=== PATIENT | female | born 1955 | race Caucasian/White ===

== ENCOUNTER 2016-09-16 16:08 | Emergency (ER) | payer OTHER ==
[2016-09-16] MEDS ORDERED: DECADRON IM ONE (18:09)
--- NOTE | 2016-09-16 18:10 | PROVIDER DOCUMENTATION ---
HPI-General Adult - General Chief Complaint: Cold Symptoms Stated Complaint: COUGHING, SORE THROAT, EARS STOPPED UP Time Seen by Provider: 09/16/16 17:16 Source: patient Allergies/Adverse Reactions: Patient Allergies Allergy/AdvReac Type Severity Reaction Status Date / Time doxycycline Allergy Severe HIVES Verified 09/16/16 17:16 nitrofurantoin Allergy Severe HIVES Verified 09/16/16 17:16 [From Macrobid] nitrofurantoin Allergy Severe HIVES Verified 09/16/16 17:16 macrocrystalline * [From [facility]] prochlorperazine edisylate * Allergy Severe ANAPHYLAXIS Verified 09/16/16 17:16 [From Compazine] prochlorperazine maleate * Allergy Severe ANAPHYLAXIS Verified 09/16/16 17:16 [From Compazine] Home Medications: Home Medication List Medication Instructions Recorded Confirmed Last Taken Type Atenolol [Tenormin] 50 mg PO DAILY 11/06/12 09/16/16 09/16/16 09:00 History LISINOpril/HCTZ [Prinzide 1 each PO DAILY 11/06/12 09/16/16 09/16/16 09:00 History 20/12.5MG] Meloxicam 15 mg PO DAILY 11/06/12 09/16/16 09/16/16 09:00 History Metformin [Glucophage] 850 mg PO BID CC 11/06/12 09/16/16 09/16/16 09:00 History Aspirin [Aspirin EC] 81 mg PO DAILY 09/16/16 09/16/16 09/16/16 09:00 History Azithromycin [Zithromax Z-Latrell] 250 mg PO DIRECTED #1 pkg 09/16/16 Unknown Rx Guaifenesin/D-Methorphan Hb/PE 1 each PO BID #10 tablet 09/16/16 Unknown Rx [Deconex Dmx Tablet] Montelukast Sodium [Singulair] 10 mg PO DAILY 09/16/16 09/16/16 09/16/16 09:00 History Multivitamin [Multiple Vitamins] 1 each PO DAILY 09/16/16 09/16/16 09/16/16 09: 00 History Omeprazole 40 mg PO DAILY 09/16/16 09/16/16 09/16/16 09:00 History SIMVAstatin [Zocor] 80 mg PO DAILY 09/16/16 09/16/16 09/16/16 09:00 History - History of Present Illness -Gen Adult Nature of Presenting Problems: Pt is a 61 y/o F c chief complaint cough and cold symptoms x 3-5 days. Pt states her cough has become productive. She denies fever. On arrival, pt is in minimal distress and afebrile. she has a h/o HTN, HLD, GERD. Review of Systems - Adult - REVIEW OF SYSTEMS - ADULT Constitutional: reports: no symptoms reported. denies: chills, fatique Eyes: reports: no symptoms reported. denies: blurred vision, double vision Ears, Nose, Mouth & Throat: reports: sinus problem, nose pain. denies: ear pain , throat pain Cardiovascular: reports: no symptoms reported. denies: chest pain, orthopnea Respiratory: reports: cough. denies: wheezing Gastrointestinal: reports: no symptoms reported. denies: abdominal pain, nausea Genitourinary: reports: no symptoms reported. denies: dysuria, hematuria Musculoskeletal: reports: no symptoms reported. denies: bone pain, joint pain, joint swelling Integumentary: reports: no symptoms reported Neurological: reports: no symptoms reported. denies: numbness, paresthesia Psychiatric: reports: no symptoms reported. denies: anxiety, emotional problems Endocrine: reports: no symptoms reported. denies: cold intolerance, heat intolerance Hematologic/Lymphatic: reports: no symptoms reported. denies: blood clots, low blood count Allergic/Immunologic: reports: no symptoms reported. denies: allergic reactions , food allergy All Other Systems: Reviewed and Negative Past History - Adult - PAST MEDICAL HISTORY-ADULT Review of Records: reports: Old Records Reviewed, Nursing Assessment Review, Medications Reviewed, Social history reviewed & non-contributory. Major Childhood Illnesses: reports: denies history Cardiovascular: reports: HTN, hyperlipidemia Respiratory: reports: denies history Gastrointestinal: reports: GERD, other (hitial hernia) Obstetrical/Gynecological: reports: denies history Genitourinary: reports: denies history Musculoskeletal: reports: arthritis Neurological: reports: denies history Endocrine/Immune: reports: Diabetes Other Conditions: reports: denies history - PRIOR SURGERIES/PROCEDURES Surgical/Procedure History: reports: cholecystectomy, hysterectomy, BTL, hernia repair - PRIOR HOSPITALIZATIONS Prior Hospitalizations: reports: other - IMMUNIZATION STATUS Childhood Immunizations: See Nurse Assessment Flu Vaccine: See Nurse Assessment - FAMILY HISTORY Family History: reviewed, not pertinent - SOCIAL HISTORY Smoking: denies Substance Use: none/never Alcohol Use Frequency: never Living Situation: family Physical Exam-General - PHYSICAL EXAM-ADULT Initial Vital Signs Reviewed: Yes - CONSTITUTIONAL General Appearance: appears well, alert, no apparent distress - EYES Eyes: PERRL/EOMI, pink conjunctivae, fundi clear, no AV nicking - HEAD, EARS, NOSE, MOUTH & THROAT HENMT: normocephalic/atraumatic, moist mucous membranes, normal ENT inspection, TMs normal - NECK Neck: non-tender - RESPIRATORY Respiratory: chest non-tender, lungs clear, normal breath sounds - CARDIOVASCULAR Cardiovascular: normal peripheral pulses, regular rate, rhythm, no edema - GASTROINTESTINAL (ABDOMEN) Abdominal Exam: normal bowel sounds, non tender, soft - MUSCULOSKELETAL Back Exam: normal inspection, no CVA tenderness, no vertebral tenderness Extremity: normal range of motion, non-tender, normal gait - SKIN Integumentary: normal color, normal turgor, warm/dry - NEUROLOGIC Neurologic: grossly normal, no motor/sensory deficits - PSYCHIATRIC Psych/Mental Status: normal mood/affect, normal thought content, normal thought process, oriented x 3 Progress - PLAN OF CARE/RESULTS Progress/Plan/Lab Results: Orders Category Date Time Status DIRECT STREP Stat Lab 09/16/16 17:26 Completed Flu Swab [INFLUENZA SCREEN A/B] Stat Lab 09/16/16 17:26 Completed Dexamethasone [Decadron] Med 09/16/16 18:09 Discontinued 10 mg IM NOW ONE Departure - Departure Time of Disposition Order: 18:09 DIAGNOSIS: URI (upper respiratory infection) Qualifiers: URI type: unspecified URI Qualified Code(s): J06.9 - Acute upper respiratory infection, unspecified Disposition: HOME 01 Certified Medical Emergency: Emergent Condition: Stable Additional Instructions: ED Follow Up Instructions: You have been treated by a care provider in the Emergency Department. These instructions are being provided to you so you can have an understanding of how to care for yourself upon discharge. Upon discharge from the Emergency Department, you are responsible for making arrangements for follow-up care by a physician of your choice. Take all prescribed medications as directed. Return to the Emergency Department immediately for any new or worsening symptoms. You may call the Physician Referral phone number at [phone] to obtain a list of Physicians who are taking new patients. Prescriptions: Guaifenesin/D-Methorphan Hb/PE [Deconex Dmx Tablet] 1 each PO BID #10 tablet Azithromycin [Zithromax Z-Latrell] 250 mg PO DIRECTED #1 pkg Referrals: Ximena Segundo CRNP [Primary Care Provider] - Instructions: Upper Respiratory Infection, Adult, [id number] Attestation - Physician/ VERONICA Attestation Patient care was provided by Advanced Practice Provider:: Yes Advanced Practice Provider:: Nathaniel Hamilton Advanced Practice Provider documentation review:: The Mid-level provider documentation, treatment plan and medical decision making was reviewed by the physician who agrees with all treatment and medical decision making by the MLP.
[2016-09-16 18:23] VITALS: BP 136/74
== END 2016-09-16 18:23 | disposition home or self-care (01) ==
LOC: ED 16:08
DX: J06.9 Acute upper respiratory infection, unspecified (principal); R05 Cough; J02.9 Acute pharyngitis, unspecified; H92.09 Otalgia, unspecified ear; R09.81 Nasal congestion; R09.3 Abnormal sputum; R51 Headache; R09.89 Other specified symptoms and signs involving the circulatory and respiratory systems; I10 Essential (primary) hypertension; E78.5 Hyperlipidemia, unspecified; M19.90 Unspecified osteoarthritis, unspecified site; E11.9 Type 2 diabetes mellitus without complications; K21.9 Gastro-esophageal reflux disease without esophagitis; Z79.82 Long term (current) use of aspirin; Z79.899 Other long term (current) drug therapy
CPT/HCPCS: 87081; 87430; 87804